=== PATIENT | female | born 1990 | race Caucasian/White ===

== ENCOUNTER → 2017-03-16 | Outpatient (CLI) | payer OTHER ==
[2017-03-16 18:57] LABS: BASO % 0.5 % (0.0-1.0); EOS # 0.1 10^3/uL (0.0-0.50); EOS % 1.1 % (0.0-3.0); IMMATURE GRANULOCYTE % 0.4 % (0-0); LYMPH # 2.3 10^3/uL (1.5-6.5); LYMPH % 30.6 % (24.0-44.0); MEAN CORPUSCULAR HEMOGLOBIN 30.5 pg (27.0-33.0); MEAN CORPUSCULAR HGB CONC 33.6 g/dl (32.0-36.5); MEAN CORPUSCULAR VOLUME 90.9 fl (80.0-96.0); MONO # 0.6 10^3/uL (0.0-0.8); MONO % 7.9 % (0.0-5.0); NEUTROPHILS # 4.5 10^3/uL (1.8-7.7); NEUTROPHILS % 59.5 % (36.0-66.0); PLATELET COUNT, AUTOMATED 300 10^3/uL (150-450); RED CELL DISTRIBUTION WIDTH 11.7 % (11.5-14.5); WHITE BLOOD COUNT 7.6 10^3/uL (4.0-10.0)
[2017-03-16 20:31] LABS: MICROSCOPIC INDICATED? MAN YES (NO)
[2017-03-16 20:51] LABS: BACTERIA, URINE LARGE AMOUNT; HYALINE CAST, URINE NONE SEEN /lpf (0-1); MICROSCOPIC EXAM PERFORMED; SQUAMOUS EPITHELIAL CELL URINE SMALL AMOUNT /hpf (SMALL AMT)
== END ==
LOC: M WUC 12:03
PROVIDERS: ATTEND Physician Assistant
DX: N39.0 Urinary tract infection, site not specified (principal)

== ENCOUNTER → 2017-04-02 | Outpatient (CLI) | payer OTHER, SELFPAY | LOC: M ADAMS 13:00 | PROVIDERS: ATTEND Physician Assistant Medical | DX: J02.9 Acute pharyngitis, unspecified (principal) ==

== ENCOUNTER → 2017-07-15 | Outpatient (CLI) | payer OTHER ==
[2017-07-15 17:41] LABS: ALBUMIN 4.4 GM/DL (3.2-5.2); ALBUMIN/GLOBULIN RATIO 1.42 (1.00-1.93); ALKALINE PHOSPHATASE 72 U/L (45-117); ALT/SGPT 18 U/L (12-78); ANION GAP 8 MEQ/L (8-16); AST/SGOT 7 U/L (7-37); BILIRUBIN,TOTAL 0.8 MG/DL (0.2-1.0); BLOOD UREA NITROGEN 12 MG/DL (7-18); CALCIUM LEVEL 9.5 MG/DL (8.5-10.1); CARBON DIOXIDE LEVEL 26 MEQ/L (21-32); CHLORIDE LEVEL 106 MEQ/L (98-107); CREATININE FOR GFR 0.81 MG/DL (0.55-1.30); GLOMERULAR FILTRATION RATE > 60.0 (>60); GLUCOSE, FASTING 85 MG/DL (70-100); SODIUM LEVEL 140 MEQ/L (136-145); TOTAL PROTEIN 7.5 GM/DL (6.4-8.2)
[2017-07-15 17:44] LABS: POTASSIUM SERUM 5.2 MEQ/L (3.5-5.1)
== END ==
LOC: M ADAMS 11:30
DX: L23.9 Allergic contact dermatitis, unspecified cause (principal)
CPT/HCPCS: 84443

== ENCOUNTER → 2018-06-07 | Outpatient (REF) | payer OTHER | LOC: M LAB REF 17:14 | PROVIDERS: ATTEND Family Medicine | DX: R30.0 Dysuria (principal) ==

== ENCOUNTER → 2018-06-26 | Outpatient (REF) | payer OTHER | LOC: M LAB REF 17:17 | PROVIDERS: ATTEND Physician Assistant | DX: L50.1 Idiopathic urticaria (principal) ==

== ENCOUNTER → 2018-07-23 | Outpatient (CLI) | payer OTHER ==
[2018-07-23 13:03] LABS: ALBUMIN 3.8 GM/DL (3.2-5.2); ALT/SGPT 41 U/L (12-78); BILIRUBIN,TOTAL 0.8 MG/DL (0.2-1.0); BLOOD UREA NITROGEN 12 MG/DL (7-18); CALCIUM LEVEL 8.8 MG/DL (8.5-10.1); CARBON DIOXIDE LEVEL 22 MEQ/L (21-32); CHLORIDE LEVEL 110 MEQ/L (98-107); CREATININE FOR GFR 0.83 MG/DL (0.55-1.30); FREE T4 0.93 NG/DL (0.76-1.46); GLOMERULAR FILTRATION RATE > 60.0 (>60); GLUCOSE, FASTING 105 MG/DL (70-100); POTASSIUM SERUM 4.2 MEQ/L (3.5-5.1); SODIUM LEVEL 141 MEQ/L (136-145); TOTAL PROTEIN 6.7 GM/DL (6.4-8.2)
[2018-07-23 14:08] LABS: HEMOGLOBIN A1c 5.6 %
[2018-07-23 15:02] LABS: LUTEINIZING HORMONE 5.6 mIU/mL
[2018-07-23 15:04] LABS: FOLLICLE STIMULATING HORMONE 3.8 mIU/mL
[2018-07-25 00:07] LABS: TESTOSTERONE FREE (DIRECT) 2.3 pg/mL (0.0-4.2)
== END ==
LOC: M ADAMS 10:18
PROVIDERS: ATTEND Family Medicine
DX: N91.1 Secondary amenorrhea (principal)

== ENCOUNTER → 2018-08-02 | Outpatient (REF) | payer OTHER | LOC: M LAB REF 19:14 | PROVIDERS: ATTEND Physician Assistant | DX: N39.0 Urinary tract infection, site not specified (principal) ==

== ENCOUNTER → 2018-10-17 | Outpatient (CLI) | payer OTHER ==
[2018-10-17 10:45] LABS: BASO # 0.1 10^3/uL (0.0-0.2); BASO % 0.8 % (0.0-1.0); EOS # 0.1 10^3/uL (0.0-0.50); EOS % 1.5 % (0.0-3.0); HEMATOCRIT 42.8 % (36.0-47.0); HEMOGLOBIN 14.3 g/dl (12.0-15.5); LYMPH # 2.5 10^3/uL (1.5-6.5); LYMPH % 32.3 % (24.0-44.0); MEAN CORPUSCULAR HEMOGLOBIN 30.8 pg (27.0-33.0); MEAN CORPUSCULAR HGB CONC 33.4 g/dl (32.0-36.5); MONO # 0.5 10^3/uL (0.0-0.8); MONO % 6.7 % (0.0-5.0); NEUTROPHILS # 4.5 10^3/uL (1.8-7.7); NEUTROPHILS % 58.1 % (36.0-66.0); PLATELET COUNT, AUTOMATED 292 10^3/uL (150-450); RED BLOOD COUNT 4.65 10^6/uL (4.00-5.40); WHITE BLOOD COUNT 7.8 10^3/uL (4.0-10.0)
[2018-10-17 11:12] LABS: HCG, SERUM QUALITATIVE NEGATIVE (NEGATIVE)
[2018-10-17 11:14] LABS: ALBUMIN 3.9 GM/DL (3.2-5.2); ALT/SGPT 46 U/L (12-78); BILIRUBIN,DIRECT 0.1 MG/DL (0.0-0.2); BILIRUBIN,TOTAL 0.6 MG/DL (0.2-1.0); BLOOD UREA NITROGEN 12 MG/DL (7-18); CALCIUM LEVEL 9.5 MG/DL (8.5-10.1); CARBON DIOXIDE LEVEL 27 MEQ/L (21-32); CHLORIDE LEVEL 108 MEQ/L (98-107); CREATININE FOR GFR 0.91 MG/DL (0.55-1.30); GLOMERULAR FILTRATION RATE > 60.0 (>60); GLUCOSE, FASTING 103 MG/DL (70-100); LIPASE 137 U/L (73-393); POTASSIUM SERUM 4.6 MEQ/L (3.5-5.1); SODIUM LEVEL 140 MEQ/L (136-145); TOTAL PROTEIN 7.4 GM/DL (6.4-8.2)
== END ==
LOC: M SMT 09:59
PROVIDERS: ATTEND Physician Assistant
DX: R10.813 Right lower quadrant abdominal tenderness (principal)

== ENCOUNTER → 2019-03-12 | Outpatient (REF) | payer BC | LOC: M LAB REF 16:57 | PROVIDERS: ATTEND Physician Assistant | DX: R10.2 Pelvic and perineal pain (principal) ==

== ENCOUNTER → 2019-03-18 | Outpatient (CLI) | payer BC ==
--- NOTE | 2019-03-18 15:11 | REP ---
PELVIC ULTRASOUND: Real-time sonographic evaluation of the pelvis is performed utilizing transabdominal and endovaginal technique. Bladder measures 9.7 x 12.0 x 8.4 cm. Uterus measures 7.7 x 3.5 x 4.6 cm. Endometrial thickness is 9 mm. There is no endometrial fluid collection. Ovaries are normal in size and echotexture, right ovary measuring 4.1 x 2.3 x 3.6 cm and left ovary 2.8 x 1.8 x 2.6 cm. There is no adnexal mass or free fluid. No torsion is seen of either ovary with duplex Doppler evaluation. IMPRESSION: Negative pelvic ultrasound. Electronically Signed by Declan Salinas MD 03/20/2019 10:21 A
== END ==
LOC: M RAD 12:31
PROVIDERS: ATTEND Physician Assistant
DX: R10.2 Pelvic and perineal pain (principal)

== ENCOUNTER → 2019-09-24 | Outpatient (CLI) | payer BC ==
[~2019-09-24] MED LIST: ALLE180T33 PO; CETI-36 PO; DULC100C2 PO; IBUP80TA PO; OXYC1TAB23 PO
== END ==
LOC: M LABSMTC 10:54
PROVIDERS: ATTEND Anesthesiology
DX: Z01.818 Encounter for other preprocedural examination (principal); Z11.59 Encounter for screening for other viral diseases
CPT/HCPCS: C9803; U0003

== ENCOUNTER 2019-09-27 08:05 | Day surgery (SDC) | payer BC ==
[~2019-09-27] VITALS: Ht 167.6 cm; Wt 98.4 kg
[~2019-09-27 08:05] MED LIST changes: -DULC100C2 PO; -IBUP80TA PO; +LIDOCAINE 1% MDV 20ML VIAL SQ PRN; +LR 1,000 ML IV ONE; -OXYC1TAB23 PO
[2019-09-27 08:38] LABS: HEMATOCRIT 41.2 % (36.0-47.0); MEAN CORPUSCULAR HEMOGLOBIN 30.7 pg (27.0-33.0); MEAN CORPUSCULAR VOLUME 90.4 fl (80.0-96.0); PLATELET COUNT, AUTOMATED 307 10^3/uL (150-450); RED BLOOD COUNT 4.56 10^6/uL (4.00-5.40); WHITE BLOOD COUNT 7.4 10^3/uL (4.0-10.0)
[2019-09-27] MEDS ORDERED: BUPIVACAINE HCL 0.25% 30ML VIAL As Ordered ONE (09:23)
[2019-09-27] MEDS ORDERED: propofoL 200 MG/20 ML VIAL As Ordered ONE (09:24)
[2019-09-27] MEDS ORDERED: fentaNYL 250 MCG/5 ML INJECTION (J3010) As Ordered ONE (09:24)
[2019-09-27] MEDS ORDERED: KETOROLAC 60 MG/2 ML VIAL As Ordered ONE (09:24)
[2019-09-27] MEDS ORDERED: ONDANSETRON 4MG/2ML VIAL As Ordered ONE (09:24)
[2019-09-27] MEDS ORDERED: dexameTHASONE 4 MG/ML 1ML VIAL (J1100 PER 1MG) As Ordered ONE (09:24)
[2019-09-27] MEDS ORDERED: ROCURONIUM BROMIDE 50 MG/5 ML VIAL As Ordered ONE ×2 (09:24→11:04)
[2019-09-27] MEDS ORDERED: MIDAZOLAM INJ 2MG/2ML VIAL (J2250 PER 1MG) As Ordered ONE (09:24)
[2019-09-27] MEDS ORDERED: LIDOCAINE 2% 100MG/5ML SDV (FOR ANES.) As Ordered ONE (09:24)
[2019-09-27] MEDS ORDERED: METHYLENE BLUE 0.5% (5MG/ML) 10 ML AMP (PROVAYBLUE)(Q9968 PER 1MG) As Ordered ONE (09:49)
[2019-09-27] MEDS ORDERED: ACETAMINOPHEN 1000MG 100ML IV BTL (OFIRMEV) (J0131 PER 10MG) As Ordered ONE (10:44)
[2019-09-27] MEDS ORDERED: OXYC1TAB23 PO (11:58)
[2019-09-27] MEDS ORDERED: LR 1,000 ML IV SCH (12:00)
[2019-09-27] MEDS ORDERED: ONDANSETRON 4MG/2ML VIAL IV PRN (12:00)
[2019-09-27] MEDS ORDERED: IBUP80TA PO (12:00)
[2019-09-27] MEDS ORDERED: fentaNYL 100 MCG/2 ML INJECTION (J3010) IV PRN (12:00)
[2019-09-27] MEDS ORDERED: oxyCODONE 5MG TAB PO PRN (12:00)
[2019-09-27] MEDS ORDERED: DULC100C2 PO (12:01)
[2019-09-27 14:10] VITALS: BP 136/93
== END 2019-09-27 14:30 | disposition home or self-care (01) ==
LOC: M SDC 08:05
PROVIDERS: ATTEND Obstetrics & Gynecology
DX: R10.2 Pelvic and perineal pain (principal); G89.29 Other chronic pain; N80.9 Endometriosis, unspecified; L50.3 Dermatographic urticaria; Z88.0 Allergy status to penicillin; Z79.899 Other long term (current) drug therapy
CPT/HCPCS: 36415; 58350; 58662; 81025; 85027; 86850; 86900; 86901; J0131; J1100; J1885; J2250; J2405; J3010; Q9968

== ENCOUNTER → 2019-10-31 | Outpatient (CLI) | payer BC ==
[~2019-10-31] MED LIST changes: +DULC100C2 PO; +IBUP80TA PO; -LIDOCAINE 1% MDV 20ML VIAL SQ PRN; -LR 1,000 ML IV ONE; +OXYC1TAB23 PO
--- NOTE | 2019-10-31 14:25 | REP ---
HYSTEROSALPINGOGRAM: HISTORY: Infertility. Question tubal occlusion. PROCEDURE: The endometrium is cannulated by the referring millwright supervisor and contrast is injected. Fluoroscopic spot filming was provided. 0.7 minutes of fluoroscopy time was utilized. FINDINGS: The endometrial cavity is unremarkable in shape and smooth in contour. There is an air bubble in the lower uterine segment canal during the exam. Isthmic and ampullary segments of the fallopian tube are readily opacified and appear normal. Prompt bilateral and symmetric peritoneal spillage was observed confirming bilateral tubal patency. Imp Normal hysterosalpingogram. Bilateral tubal patency is confirmed. Electronically Signed by Alberto Mayen MD 10/31/2019 03:10 P
== END ==
LOC: M RADPRO 11:39
PROVIDERS: ATTEND Obstetrics & Gynecology
DX: N97.9 Female infertility, unspecified (principal)

== ENCOUNTER 2020-01-09 08:44 | Emergency (ER) | payer BC ==
[~2020-01-09] VITALS: Ht 167.6 cm; Wt 100.2 kg
[2020-01-09 09:34] LABS: BASO # 0.1 10^3/uL (0.0-0.2); BASO % 0.7 % (0.0-1.0); EOS # 0.1 10^3/uL (0.0-0.5); EOS % 1.2 % (0.0-3.0); HEMATOCRIT 37.6 % (36.0-47.0); LYMPH # 2.6 10^3/uL (1.5-5.0); LYMPH % 31.3 % (24.0-44.0); MEAN CORPUSCULAR HEMOGLOBIN 31.4 pg (27.0-33.0); MEAN CORPUSCULAR HGB CONC 34.6 g/dl (32.0-36.5); MEAN CORPUSCULAR VOLUME 90.8 fl (80.0-96.0); MONO # 0.6 10^3/uL (0.0-0.8); MONO % 7.2 % (0.0-5.0); NEUTROPHILS # 4.9 10^3/uL (1.5-8.5); NEUTROPHILS % 58.9 % (36.0-66.0); PLATELET COUNT, AUTOMATED 257 10^3/uL (150-450); RED BLOOD COUNT 4.14 10^6/uL (4.00-5.40); WHITE BLOOD COUNT 8.3 10^3/uL (4.0-10.0)
--- NOTE | 2020-01-09 09:51 | REPVR ---
PROCEDURE INFORMATION: Exam: US First Trimester, Transabdominal and US , Transvaginal Exam date and time: 01/09/2020 9:38 AM Age: 29 years old Clinical indication: Lmp or gestational age (in weeks): 6w3d; Antepartum complications; Bleeding; ; Additional info: Vaginal bleeding, 6 wks preg TECHNIQUE: Imaging protocol: Real-time transabdominal obstetrical ultrasound of the maternal pelvis and a first trimester , less than 14 weeks 0 days, with image documentation. Transvaginal imaging was used for better evaluation of the fetus and adnexa. COMPARISON: No relevant prior studies available. FINDINGS: Gestation: No intrauterine gestational sac is identified. Embryonic/ heart rate: N/A Placenta: N/A Amniotic fluid: N/A BIOMETRY: Gestational age (AUA): N/A MATERNAL: Uterus: Uterus measures 8.4 x 4.8 5.2 cm. AP endometrial stripe thickness measures 11 mm. Cervix: Unremarkable. Right adnexa: Right ovary measures 3.5 by 2.6 x 2.2 cm. Simple 1.4 cm right ovarian cyst. Positive blood flow. Left adnexa: Left ovary measures 2.1 x 2.3 x 1.5 cm. Positive blood flow. Intraperitoneal space: No intraperitoneal free fluid. IMPRESSION: No intrauterine gestational sac is identified. In the setting of a positive beta hCG, differential considerations include very early , spontaneous , and ectopic . Recommend followup beta-hCG, and as clinically warranted, followup pelvic ultrasound. Electronically signed by: Homa Jc On 01/09/2020 09:50:44 AM
[2020-01-09 10:06] LABS: BLOOD UREA NITROGEN 11 MG/DL (7-18); CALCIUM LEVEL 9.5 MG/DL (8.5-10.1); CARBON DIOXIDE LEVEL 27 MEQ/L (21-32); CHLORIDE LEVEL 107 MEQ/L (98-107); CREATININE FOR GFR 0.95 MG/DL (0.55-1.30); GLOMERULAR FILTRATION RATE > 60.0 (>60); GLUCOSE, FASTING 121 MG/DL (70-100); HCG, SERUM QUANTITATIVE 136 MIU/ML; POTASSIUM SERUM 4.4 MEQ/L (3.5-5.1); SODIUM LEVEL 139 MEQ/L (136-145)
[2020-01-09 12:18] VITALS: BP 144/96
== END 2020-01-09 13:10 | disposition home or self-care (01) ==
LOC: M ED 08:44
DX: O20.0 Threatened abortion (principal); O99.511 Diseases of the respiratory system complicating pregnancy, first trimester; Z88.0 Allergy status to penicillin; Z79.899 Other long term (current) drug therapy; Z3A.01 Less than 8 weeks gestation of pregnancy

== ENCOUNTER → 2020-01-11 | Outpatient (CLI) | payer BC | LOC: M LAB 10:16 | PROVIDERS: ATTEND Obstetrics & Gynecology | DX: Z32.00 Encounter for pregnancy test, result unknown (principal) ==

== ENCOUNTER → 2020-06-26 | Outpatient (REF) | payer BC ==
[2020-06-26 18:00] LABS: HEMATOCRIT 39.5 % (36.0-47.0); HEMOGLOBIN 13.4 g/dl (12.0-15.5); MEAN CORPUSCULAR HEMOGLOBIN 30.5 pg (27.0-33.0); MEAN CORPUSCULAR HGB CONC 33.9 g/dl (32.0-36.5); MEAN CORPUSCULAR VOLUME 89.8 fl (80.0-96.0); PLATELET COUNT, AUTOMATED 282 10^3/uL (150-450); WHITE BLOOD COUNT 11.8 10^3/uL (4.0-10.0)
[2020-06-26 19:11] LABS: HEPATITIS C VIRUS ABY INDEX < 0.0 INDEX (<0.8); HIV 1&2 SCREEN CENTAUR NEGATIVE (NEGATIVE)
== END ==
LOC: M PLALAB 14:21
PROVIDERS: ATTEND Obstetrics & Gynecology
DX: Z34.91 Encounter for supervision of normal pregnancy, unspecified, first trimester (principal)

== ENCOUNTER 2020-07-17 08:38 | Emergency (ER) | payer BC ==
[~2020-07-17] VITALS: Ht 167.6 cm; Wt 102.8 kg
[2020-07-17 09:50] LABS: HEMATOCRIT 40.4 % (36.0-47.0); HEMOGLOBIN 13.7 g/dl (12.0-15.5); MEAN CORPUSCULAR HEMOGLOBIN 30.2 pg (27.0-33.0); MEAN CORPUSCULAR HGB CONC 33.9 g/dl (32.0-36.5); PLATELET COUNT, AUTOMATED 281 10^3/uL (150-450); RED BLOOD COUNT 4.54 10^6/uL (4.00-5.40); WHITE BLOOD COUNT 7.4 10^3/uL (4.0-10.0)
--- NOTE | 2020-07-17 10:08 | REP ---
INDICATION: vaginal bleeding first trimester. Eleven weeks 5 days by LMP. COMPARISON: None. TECHNIQUE: Transabdominal and transvaginal scanning. FINDINGS: Uterus is only mildly enlarged measuring 9.2 x 6.1 x 5.9 cm. There is an intrauterine gestational sac. Embryonic pole measures 14.5 mm. This would correspond with a 7 week 6 day gestational age estimate. However, there is no motion or cardiac motion consistent with intrauterine demise. No extra uterine abnormality is observed. Right ovarian dimensions are 3.4 x 1.8 x 2.6 cm. Left ovary measures 2.4 x 1.6 x 1.8 cm. IMPRESSION: Findings indicative of intrauterine demise at 7 weeks 6 days by crown-rump length. <Electronically signed by Samson Mayen > 07/17/20 [id number]
[2020-07-17 11:01] VITALS: BP 144/89
== END 2020-07-17 11:02 | disposition home or self-care (01) ==
LOC: M ED 08:38
DX: O02.1 Missed abortion (principal); Z88.0 Allergy status to penicillin; Z79.899 Other long term (current) drug therapy

== ENCOUNTER 2020-07-19 08:28 | Emergency (ER) | payer BC ==
[~2020-07-19] VITALS: Ht 167.6 cm; Wt 100.0 kg
[2020-07-19] MEDS ORDERED: IBUP200T45 PO (08:37)
[2020-07-19] MEDS ORDERED: ONDANSETRON 4MG/2ML VIAL IV ONE (08:55)
[2020-07-19] MEDS ORDERED: KETOROLAC 30 MG/ML 1ML VIAL IV ONE (08:55)
[2020-07-19] MEDS ORDERED: LORazepam 2 MG/ML VIAL IV STA (09:12)
[2020-07-19 09:27] LABS: BASO # 0.1 10^3/uL (0.0-0.2); BASO % 0.4 % (0.0-1.0); EOS # 0.1 10^3/uL (0.0-0.5); EOS % 0.4 % (0.0-3.0); HEMATOCRIT 41.8 % (36.0-47.0); HEMOGLOBIN 14.4 g/dl (12.0-15.5); LYMPH # 2.1 10^3/uL (1.5-5.0); LYMPH % 18.2 % (24.0-44.0); MEAN CORPUSCULAR HEMOGLOBIN 30.4 pg (27.0-33.0); MEAN CORPUSCULAR HGB CONC 34.4 g/dl (32.0-36.5); MEAN CORPUSCULAR VOLUME 88.2 fl (80.0-96.0); MONO # 0.6 10^3/uL (0.0-0.8); MONO % 5.4 % (2.0-8.0); NEUTROPHILS # 8.6 10^3/uL (1.5-8.5); NEUTROPHILS % 75.3 % (36.0-66.0); PLATELET COUNT, AUTOMATED 295 10^3/uL (150-450); RED BLOOD COUNT 4.74 10^6/uL (4.00-5.40); WHITE BLOOD COUNT 11.5 10^3/uL (4.0-10.0)
[2020-07-19] MEDS ORDERED: NS 1,000 ML IV ONE ×2 (09:35→13:10)
--- NOTE | 2020-07-19 12:03 | REP ---
INDICATION: vaginal bleeding. COMPARISON: None. TECHNIQUE: Obstetric ultrasound with transabdominal, endovaginal and Doppler ultrasound evaluation. FINDINGS: The uterus is anteverted and normal size measuring 8.5 x 4.1 x 5.6 cm. The endometrium is not thickened measuring up to 9.5 mm. There is no identifiable intrauterine gestational sac. The patient reportedly passed tissue earlier this morning. There are clots identified in the lower uterine segment and in the endocervical canal. Right ovary: The right ovary measures 2.7 x 1.6 x 2.8 cm and is normal size. There is no dominant mass or cyst. Left ovary: The left ovary measures 2.8 x 1.8 x 2 x 1 cm and is normal size. There is no dominant left ovarian mass or cyst. There is vascular flow in both ovaries with the Doppler resistive index in the parenchymal arteries of the right ovary measuring 0.68 and left ovary measuring 0.60 There is no free fluid in the pelvis. IMPRESSION: There is no identifiable intrauterine gestation. There are clots in the lower uterine segment and in the endocervical canal. The uterus and ovaries are otherwise unremarkable. There is no free fluid in the pelvis. <Electronically signed by Declan Wakefield > 07/19/20 1200
[2020-07-19 14:53] VITALS: BP 136/85
[2020-07-19] MEDS ORDERED: ZOFR4TAB16 PO (15:17)
[2020-07-19] MEDS ORDERED: KETO10TAB PO (15:18)
== END 2020-07-19 15:21 | disposition home or self-care (01) ==
LOC: M ED 08:28
DX: O03.9 Complete or unspecified spontaneous abortion without complication (principal); J45.909 Unspecified asthma, uncomplicated; Z88.0 Allergy status to penicillin; Z79.899 Other long term (current) drug therapy
CPT/HCPCS: 76801; 76817; 80047; 84702; 85025; 86901; 88305; 93976; 96361; 96374; 96375; 99284; J1885; J2060; J2405

== ENCOUNTER → 2020-11-18 | Outpatient (CLI) | payer BC ==
[~2020-11-18] MED LIST changes: +IBUP200T45 PO; +KETO10TAB PO; +ZOFR4TAB16 PO
== END ==
LOC: M PLALAB 14:30
PROVIDERS: ATTEND Obstetrics & Gynecology
DX: Z32.01 Encounter for pregnancy test, result positive (principal)

== ENCOUNTER → 2020-11-20 | Outpatient (CLI) | payer BC | LOC: M PLALAB 13:37 | PROVIDERS: ATTEND Obstetrics & Gynecology | DX: Z32.01 Encounter for pregnancy test, result positive (principal) ==

== ENCOUNTER → 2021-01-11 | Outpatient (CLI) | payer BC ==
[2021-01-11 15:47] LABS: HEMATOCRIT 39.5 % (36.0-47.0); HEMOGLOBIN 13.7 g/dl (12.0-15.5); MEAN CORPUSCULAR HEMOGLOBIN 30.5 pg (27.0-33.0); MEAN CORPUSCULAR HGB CONC 34.7 g/dl (32.0-36.5); PLATELET COUNT, AUTOMATED 269 10^3/uL (150-450); RED BLOOD COUNT 4.49 10^6/uL (4.00-5.40); WHITE BLOOD COUNT 11.7 10^3/uL (4.0-10.0)
[2021-01-11 16:55] LABS: GC DNA AMPLIFICATION NEGATIVE (NEGATIVE)
[2021-01-11 18:30] LABS: HEPATITIS C VIRUS ABY INDEX < 0.0 INDEX (<0.8); HIV 1&2 SCREEN CENTAUR NEGATIVE (NEGATIVE)
== END ==
LOC: M PLALAB 12:29
PROVIDERS: ATTEND Obstetrics & Gynecology
DX: O26.21 Pregnancy care for patient with recurrent pregnancy loss, first trimester (principal)

== ENCOUNTER → 2021-03-12 | Outpatient (CLI) | payer BC ==
[~2021-03-12] MED LIST changes: -IBUP200T45 PO; +IBUP200T46 PO
--- NOTE | 2021-03-12 08:57 | REP ---
INDICATION: ANATOMY. COMPARISON: None. TECHNIQUE: Second trimester anatomy screening protocol. FINDINGS: Scanning demonstrates a viable single intrauterine gestation in a variable lie. motion is observed and heart rate is recorded at 153 beats per minute. An anterior, grade zero placenta is seen without evidence of previa. Three-vessel cord shows a mid placental insertion. Amniotic fluid is subjectively normal. Closed cervical length is measured at 4.3 cm transabdominally. No extrauterine abnormality is observed. No anomaly is seen but the exam is incomplete due to position.. The following anatomic structures are identified and felt to be sonographically unremarkable: cranium, choroid plexus, cavum, cerebellum and posterior fossa, face and profile, lungs, left-sided stomach, abdominal wall cord insertion, three-vessel umbilical cord, kidneys and bladder, spine, and upper and lower extremities. Following structures were not well evaluated due to position: four-chamber heart with left and right ventricular outflow tract views, diaphragm. Biometry chart: BPD 4.4 cm; 19 weeks 2 days Head circumference 16.9 cm; 19 weeks 4 days Abdominal circumference 15.8 cm; 20 weeks 6 days Femur length 3.3 cm; 20 weeks 2 days Humeral length 3 cm; 19 weeks 6 days HC/AC ratio normal 1.07 Cephalic index normal 0.71 Estimated weight 357 grams, 0 pounds 12 ounces, 48th percentile for 20 weeks 3 days. IMPRESSION: Viable single intrauterine gestation at 20 weeks 0 days by today's composite sonographic criteria. Expected gestational age estimate based MO provided is 20 weeks is 3 days. MO provided 07/27/2021. No anomaly visible but exam incomplete. Rescanning later in the 2nd trimester for those anatomic structures not well seen recommended. <Electronically signed by Ulisses Gamino > 03/12/21 [id number]
== END ==
LOC: M WHC 07:01
PROVIDERS: ATTEND Obstetrics & Gynecology
DX: O26.22 Pregnancy care for patient with recurrent pregnancy loss, second trimester (principal)

== ENCOUNTER → 2021-04-12 | Outpatient (CLI) | payer BC ==
--- NOTE | 2021-04-12 08:42 | REP ---
INDICATION: F/U ANATOMY COMPARISON: 03/12/2021 TECHNIQUE: Transabdominal obstetrical ultrasound with color Doppler evaluation. FINDINGS: Examination demonstrates a single live intrauterine in variable presentation. motion is identified by technologist. Placenta is noted left lateral and grade 1 without evidence for placenta previa or abruption. Amniotic fluid volume is normal. Cervix measures 5.1 cm in length and appears closed.. Selected gestational age: 24 weeks 6 days with MO 07/27/2021. Gestational age by current measurements 24 weeks 3 days with MO 07/30/2021. FHR equals 160 beats per minute. Estimated weight 693 grams (23rdpercentile). Anatomical assessment demonstrates normal structures including four-chamber heart/ventricular outflow tracts, and diaphragm. IMPRESSION: Single live intrauterine in variable presentation demonstrating appropriate estimated weight and growth. In conjunction with prior examination anatomical assessment is complete and normal. <Electronically signed by Ricky Pino > 04/12/21 0883
== END ==
LOC: M WHC 07:03
PROVIDERS: ATTEND Obstetrics & Gynecology
DX: Z36.9 Encounter for antenatal screening, unspecified (principal); Z3A.24 24 weeks gestation of pregnancy

== ENCOUNTER → 2021-06-01 | Outpatient (CLI) | payer BC | LOC: M LAB 08:29 | PROVIDERS: ATTEND Obstetrics & Gynecology | DX: R73.09 Other abnormal glucose (principal) ==

== ENCOUNTER → 2021-06-23 | Outpatient (CLI) | payer BC | LOC: M WHC 07:04 | PROVIDERS: ATTEND Obstetrics & Gynecology | DX: O24.419 Gestational diabetes mellitus in pregnancy, unspecified control (principal); Z36.2 Encounter for other antenatal screening follow-up; Z3A.34 34 weeks gestation of pregnancy ==

== ENCOUNTER → 2021-06-23 | Outpatient (REF) | payer BC | LOC: M PLALAB 09:44 | PROVIDERS: ATTEND Advanced Practice Midwife | DX: O24.415 Gestational diabetes mellitus in pregnancy, controlled by oral hypoglycemic drugs (principal) ==

== ENCOUNTER 2021-07-13 13:52 | Inpatient (IN) | payer BC ==
[2021-07-13] VITALS (15 sets, daily range): BP systolic 143–201; BP diastolic 83–113
[~2021-07-13] VITALS: Ht 167.6 cm; Wt 106.8 kg
[2021-07-13] MEDS ORDERED: OXYTOCIN DRIP 30 UNITS in IV 1 EA IV PRN (14:30)
[2021-07-13] MEDS ORDERED: LIDOCAINE 1% MDV 20ML VIAL INFIL PRN (14:30)
[2021-07-13] MEDS ORDERED: OXYTOCIN INJ 10 UNITS/ML VIAL (J2590) IM PRN (14:30)
[2021-07-13] MEDS ORDERED: CARBOPROST TROMETHAMINE 250 MCG/ML AMP IM PRN (14:30)
[2021-07-13] MEDS ORDERED: METHYLERGONOVINE MALEATE 0.2 MG/ML VIAL (J2210) IM PRN (14:30)
[2021-07-13] MEDS ORDERED: TRANEXAMIC ACID INJection 1,000 MG in NS 100 ML IV PRN (14:30)
[2021-07-13] MEDS ORDERED: METF500T13 PO (14:51)
[2021-07-13] MEDS ORDERED: PRENTAB9 PO (14:51)
[2021-07-13] MEDS ORDERED: ASPI81CH33 PO (14:51)
[2021-07-13] MEDS ORDERED: HOME MED LIST COMPLETE! XX SCH (14:55)
[2021-07-13] MEDS: miSOPROStol 50MCG 1/2 TABLET PO SCH ×2 (15:44→20:10)
[2021-07-13 15:50] LABS: HEMATOCRIT 37.6 % (36.0-47.0); MEAN CORPUSCULAR HEMOGLOBIN 30.7 pg (27.0-33.0); MEAN CORPUSCULAR HGB CONC 34.6 g/dl (32.0-36.5); MEAN CORPUSCULAR VOLUME 88.9 fl (80.0-96.0); PLATELET COUNT, AUTOMATED 198 10^3/uL (150-450); RED BLOOD COUNT 4.23 10^6/uL (4.00-5.40); WHITE BLOOD COUNT 12.2 10^3/uL (4.0-10.0)
[2021-07-13 16:23] LABS: ALT/SGPT 28 U/L (12-78); BILIRUBIN,TOTAL 0.4 MG/DL (0.2-1.0); CREATININE FOR GFR 0.57 MG/DL (0.55-1.30); GLOMERULAR FILTRATION RATE > 60.0 (>60); LDH LACTATE DEHYDROGENASE 140 U/L (84-246); URIC ACID 5.1 MG/DL (2.6-6.0)
[2021-07-13] MEDS: LABETALOL 200 MG TAB PO SCH (21:54)
[2021-07-14] VITALS (29 sets, daily range): BP systolic 88–193; BP diastolic 46–98
[2021-07-14] MEDS: miSOPROStol 50MCG 1/2 TABLET PO SCH ×3 (00:15→08:21)
[2021-07-14] MEDS: LABETALOL 200 MG TAB PO SCH ×2 (09:24→21:00)
[2021-07-14] MEDS ORDERED: OXYTOCIN DRIP 30 UNITS in IV 1 EA IV SCH (13:20)
[2021-07-14] MEDS: LR 1,000 ML IV SCH ×3 (13:38→18:40)
[2021-07-14] MEDS ORDERED: FENTANYL 2MCG/ML ROPIVACAINE 0.2% IN 0.9% NACL 100ML IVBAG As Ordered ONE (18:07)
[2021-07-14] MEDS ORDERED: ONDANSETRON 4MG/2ML VIAL IV PRN (19:00)
[2021-07-14] MEDS ORDERED: EPIDURAL COMMENT XX SCH (19:00)
[2021-07-14] MEDS ORDERED: FENTANYL/ROPIVACAINE/NACL BAG 100 ML EPIDURAL SCH (19:00)
[2021-07-14] MEDS ORDERED: LACTATED RINGER'S 1000 ML IV PRN (19:00)
[2021-07-14] MEDS ORDERED: EPIDURAL/PCA KEYS XX PRN (19:00)
[2021-07-14] MEDS ORDERED: NALOXONE INJ 0.4MG/1ML VIAL (J2310 PER 1MG) IV PRN (19:00)
[2021-07-14] MEDS ORDERED: diphenhydrAMINE 50MG/ML VIAL (J1200) IV PRN (19:00)
[2021-07-14] MEDS ORDERED: REFRIGERATOR IV KEYS XX PRN (19:00)
[2021-07-14] MEDS: ePHEDrine SULFATE 25 MG/5 ML(5MG/ML) SYRINGE IV PRN ×6 (19:12→22:37)
[2021-07-15 01:05] LABS: CORD GAS ABE V -9.1; CORD GAS HCO3 V 17.4 MEQ/L; CORD GAS O2 SAT V 50.6 %; CORD GAS PCO2 V 39.8 mmHg; CORD GAS PH V 7.259 UNITS; CORD GAS PO2 V 22.6 mmHg; CORD GAS SBC V 16.3 MEQ/L; CORD GAS TCO2 V 18.6 MEQ/L
[2021-07-15 01:08] LABS: CORD GAS ABE A -10.7; CORD GAS HCO3 A 19.3 MEQ/L; CORD GAS O2 SAT A 38.7 %; CORD GAS PCO2 A 59.4 mmHg; CORD GAS PH A 7.13 UNITS; CORD GAS PO2 A 21.2 mmHg; CORD GAS SBC A 14.9 MEQ/L; CORD GAS TCO2 A 21.1 MEQ/L
[2021-07-15] MEDS ORDERED: RHOGAM 300 MCG (1500 IU) INJ (J2790) IM SCH (01:40)
[2021-07-15] MEDS ORDERED: MEASLES,MUMPS,RUBELLA VACCINE INJ (MMR-II) (90707) SC SCH (01:40)
[2021-07-15] MEDS ORDERED: ACETAMINOPHEN TAB 650MG DOSE (2X325MG) PO PRN (01:40)
[2021-07-15] MEDS ORDERED: DOCUSATE SODIUM 100MG CAPSULE PO PRN (01:40)
[2021-07-15] MEDS ORDERED: DIBUCAINE 1% OINTMENT 30GM TOP PRN (01:40)
[2021-07-15 04:00] VITALS: BP 136/83
[2021-07-15 04:10] VITALS: BP 136/83
[2021-07-15] MEDS: IBUPROFEN 600MG TAB PO PRN ×2 (05:00→12:59)
[2021-07-15] MEDS: PRENATAL VITAMINS CHEWABLE TABLET PO SCH (09:29)
[2021-07-15 09:30] VITALS: BP 138/94
[2021-07-15] MEDS: LABETALOL 200 MG TAB PO SCH ×2 (09:30→20:53)
[2021-07-15 09:52] VITALS: BP 145/86
[2021-07-15 14:36] VITALS: BP 130/76
[2021-07-15 17:52] VITALS: BP 154/83
[2021-07-16] MEDS: IBUPROFEN 800 MG TAB PO PRN (00:05)
[2021-07-16] MEDS: ACETAMINOPHEN 500 MG TAB PO PRN ×2 (01:30→13:33)
[2021-07-16 05:55] VITALS: BP 126/60
[2021-07-16] MEDS: PRENATAL VITAMINS CHEWABLE TABLET PO SCH (08:41)
[2021-07-16] MEDS: LABETALOL 200 MG TAB PO SCH ×2 (08:41→21:33)
[2021-07-16] MEDS: IBUPROFEN 600MG TAB PO PRN ×2 (11:53→20:11)
[2021-07-16 18:00] VITALS: BP 148/64
[2021-07-17] MEDS: ACETAMINOPHEN 500 MG TAB PO PRN (01:17)
[2021-07-17 05:10] VITALS: BP 136/71
[2021-07-17 08:25] VITALS: BP 175/86
[2021-07-17] MEDS: LABETALOL 200 MG TAB PO SCH (08:25)
[2021-07-17] MEDS: IBUPROFEN 800 MG TAB PO PRN (08:25)
[2021-07-17] MEDS: PRENATAL VITAMINS CHEWABLE TABLET PO SCH (08:25)
[2021-07-17 10:01] VITALS: BP 149/74
[2021-07-17] MEDS ORDERED: ACET-683 PO (10:55)
[2021-07-17] MEDS ORDERED: IBUP80TA PO (10:55)
== END 2021-07-17 12:10 | disposition home or self-care (01) | DRG 560 ==
LOC: M LDI 13:52 → M OBS 07-15 04:10
PROVIDERS: ADMIT Obstetrics & Gynecology; ATTEND Obstetrics & Gynecology
PROC: 3E0P7GC Introduction of Other Therapeutic Substance into Female Reproductive, Via Natural or Artificial Opening (ICD-10-PCS; 2021-07-13)
PROC: 10E0XZZ Delivery of Products of Conception, External Approach (ICD-10-PCS; principal; 2021-07-15)
PROC: 0HQ9XZZ Repair Perineum Skin, External Approach (ICD-10-PCS; 2021-07-15)
DX: O24.425 Gestational diabetes mellitus in childbirth, controlled by oral hypoglycemic drugs (principal); O69.1XX0 Labor and delivery complicated by cord around neck, with compression, not applicable or unspecified; Z3A.38 38 weeks gestation of pregnancy; O13.4 Gestational [pregnancy-induced] hypertension without significant proteinuria, complicating childbirth; O70.0 First degree perineal laceration during delivery; Z37.0 Single live birth

== ENCOUNTER → 2021-08-12 | Outpatient (CLI) | payer BC ==
[~2021-08-12] MED LIST changes: +ACET-683 PO; +ASPI81CH33 PO; +METF500T13 PO; +PRENTAB9 PO
== END ==
LOC: M WHC 11:59
PROVIDERS: ATTEND Physician Assistant
DX: R10.821 Right upper quadrant rebound abdominal tenderness (principal)

== ENCOUNTER → 2021-09-09 | Outpatient (CLI) | payer BC ==
[~2021-09-09] MED LIST changes: +CETI10CH PO
== END ==
LOC: M LABSMTC 09:38
PROVIDERS: ATTEND Anesthesiology
DX: Z01.818 Encounter for other preprocedural examination (principal); Z11.52 Encounter for screening for COVID-19

== ENCOUNTER → 2021-09-10 | Outpatient (CLI) | payer BC | LOC: M EKG 17:17 | PROVIDERS: ATTEND Anesthesiology | DX: K82.9 Disease of gallbladder, unspecified (principal) ==

== ENCOUNTER 2021-09-14 07:27 | Day surgery (SDC) | payer BC ==
[~2021-09-14] VITALS: Ht 167.6 cm; Wt 89.4 kg
[~2021-09-14 07:27] MED LIST changes: +LR 1,000 ML IV ONE; +ceFAZolin SOD 2 GM in IV 1 EA IV ONE
[2021-09-14] MEDS ORDERED: BUPIVACAINE/EPIN 0.25% 30 ML VIAL As Ordered ONE (08:52)
[2021-09-14] MEDS ORDERED: MIDAZOLAM INJ 2MG/2ML VIAL (J2250 PER 1MG) As Ordered ONE (09:27)
[2021-09-14] MEDS ORDERED: dexameTHASONE 4 MG/ML 1ML VIAL (J1100 PER 1MG) As Ordered ONE (09:27)
[2021-09-14] MEDS ORDERED: LIDOCAINE 2% 100MG/5ML SDV (FOR ANES.) As Ordered ONE (09:27)
[2021-09-14] MEDS ORDERED: fentaNYL 100 MCG/2 ML INJECTION As Ordered ONE (09:27)
[2021-09-14] MEDS ORDERED: ROCURONIUM BROMIDE 50 MG/5 ML VIAL As Ordered ONE (09:27)
[2021-09-14] MEDS ORDERED: ONDANSETRON 4MG/2ML VIAL As Ordered ONE (09:28)
[2021-09-14] MEDS ORDERED: fentaNYL 250 MCG/5 ML INJECTION As Ordered ONE (09:28)
[2021-09-14] MEDS ORDERED: propofoL 200 MG/20 ML VIAL As Ordered ONE (09:28)
[2021-09-14] MEDS ORDERED: ACETAMINOPHEN 1000MG 100ML IV BTL (OFIRMEV) (J0131 PER 10MG) As Ordered ONE (09:38)
[2021-09-14] MEDS ORDERED: NEOSTIGMINE 10MG/10ML VIAL (J2710 PER 0.5MG) As Ordered ONE (09:40)
[2021-09-14] MEDS ORDERED: GLYCOPYRROLATE INJ 0.2 MG/ML 2 ML VIAL As Ordered ONE (09:40)
[2021-09-14] MEDS ORDERED: KETOROLAC 60MG 2ML VIAL As Ordered ONE (10:07)
[2021-09-14] MEDS ORDERED: oxyCODONE 5MG TAB PO PRN (10:40)
[2021-09-14] MEDS ORDERED: traMADol 50 MG TAB PO PRN (10:40)
[2021-09-14] MEDS ORDERED: NS 1,000 ML IV SCH (10:40)
[2021-09-14] MEDS ORDERED: ONDANSETRON 4MG/2ML VIAL IV PRN (10:40)
[2021-09-14] MEDS ORDERED: fentaNYL 100 MCG/2 ML INJECTION IV PRN (10:40)
[2021-09-14] MEDS ORDERED: LR 1,000 ML IV SCH (10:40)
[2021-09-14 12:30] VITALS: BP 114/67
[2021-09-14] MEDS ORDERED: KETOROLAC 30 MG/ML 1ML VIAL IV SCH (16:00)
== END 2021-09-14 12:34 | disposition home or self-care (01) ==
LOC: M SDC 07:27
PROVIDERS: ATTEND Surgery
DX: K80.10 Calculus of gallbladder with chronic cholecystitis without obstruction (principal); J45.909 Unspecified asthma, uncomplicated; Z79.899 Other long term (current) drug therapy; Z88.0 Allergy status to penicillin; Z91.011 Allergy to milk products
CPT/HCPCS: 47562; 81025; 88304; J0131; J0690; J1100; J1885; J2250; J2405; J2710; J3010

== ENCOUNTER → 2022-01-31 | Outpatient (REF) | payer BC ==
[~2022-01-31] MED LIST changes: -LR 1,000 ML IV ONE; -ceFAZolin SOD 2 GM in IV 1 EA IV ONE
== END ==
LOC: M SFHCWAGY 15:18
PROVIDERS: ATTEND Obstetrics & Gynecology
DX: Z12.4 Encounter for screening for malignant neoplasm of cervix (principal)

== ENCOUNTER → 2022-04-08 | Outpatient (REF) | payer BC | LOC: M SFHCWAGY 17:30 | PROVIDERS: ATTEND Obstetrics & Gynecology | DX: Z12.4 Encounter for screening for malignant neoplasm of cervix (principal); R87.615 Unsatisfactory cytologic smear of cervix | CPT/HCPCS: 87624; G0123 ==